=== PATIENT | male | born 1960 | race Caucasian/White ===

== ENCOUNTER 2017-12-23 01:24 | Observation (INO) | END 2017-12-23 14:49 | disposition home or self-care (01) | DX: R07.89 Other chest pain (principal); I25.10 Atherosclerotic heart disease of native coronary artery without angina pectoris; I10 Essential (primary) hypertension; F17.200 Nicotine dependence, unspecified, uncomplicated; E78.5 Hyperlipidemia, unspecified; R06.02 Shortness of breath; I25.2 Old myocardial infarction; E78.00 Pure hypercholesterolemia, unspecified; Z95.5 Presence of coronary angioplasty implant and graft | CPT/HCPCS: 71045; 78452; 80053; 80061; 82550; 84484; 85025; 85610; 85730; 93005; 93017; 99285; A9502; G0378; J2785 ==

== ENCOUNTER 2018-06-18 12:20 | Observation (INO) ==
--- NOTE | 2018-06-18 13:24 | XR ---
EXAM DATE: 06/18/2018 1:20 PM EST AGE/SEX: 57 years / Male INDICATIONS: . Chest pain for 13 hours with history of cardiac disease. CLINICAL DATA: This is the patient's initial encounter. Patient reports that signs and symptoms have been present for 2 days and indicates a pain score of 6/10. MEDICAL/SURGICAL HISTORY: Cardiovascular disease. . 5 cardiac stents COMPARISON: [facility] [place], 12/23/2017. . FINDINGS: PA and lateral views of the chest demonstrate the lungs to be symmetrically aerated without evidence of mass, infiltrate or effusion. The cardiomediastinal contours are unremarkable. Osseous structures are intact. CONCLUSION: Negative examination. Electronically signed by: Tyrone Reed MD 06/18/2018 1:22 PM EST
[2018-06-18 13:32] LABS: Baso # (Auto) 0.1 th/mm3 (0.0-0.2); Baso % (Auto) 0.8 % (0.0-2.0); Eos # (Auto) 0.2 th/mm3 (0.0-0.4); Eos % (Auto) 2.5 % (0.0-4.0); Hemoglobin 14.6 gm/dL (13.0-17.0); Lymph # (Auto) 2.3 th/mm3 (1.0-4.8); Lymph % (Auto) 28.9 % (9.0-44.0); Mean Corpuscular HGB Conc 35.5 % (32.0-36.0); Mean Platelet Volume 8.4 fL (7.0-11.0); Mono # (Auto) 0.5 th/mm3 (0.0-0.9); Mono % (Auto) 6.3 % (0.0-8.0); Neut # (Auto) 4.9 th/mm3 (1.8-7.7); Neut % (Auto) 61.5 % (16.0-70.0); Platelet Count 218 th/mm3 (150-450); Red Blood Count 4.41 mil/mm3 (4.50-5.90)
[2018-06-18 13:48] LABS: Albumin 3.5 g/dL (3.4-5.0); Anion Gap 9 meq/L (5-15); Aspartate Aminotransferase 14 U/L (15-37); Blood Urea Nitrogen 13 mg/dL (7-18); Calcium 8.1 mg/dL (8.5-10.1); Carbon Dioxide 22.9 meq/L (21.0-32.0); Chloride 110 meq/L (98-107); Glomerular Filtration Rate 76 mL/min (>89); Glucose,Random 115 mg/dL (74-106); Potassium 4.1 meq/L (3.5-5.1); Sodium 142 meq/L (136-145)
[2018-06-18 13:49] LABS: Alanine Aminotransferase 27 U/L (12-78)
[2018-06-18 13:53] LABS: Alkaline Phosphatase 82 U/L (45-117); Total Protein 6.7 g/dL (6.4-8.2)
--- NOTE | 2018-06-18 14:45 | ED ---
HPI General Chief Complaint: Chest Pain Stated Complaint: chest pain Time Seen by Provider: 06/18/18 12:42 Source: patient Mode of arrival: ambulatory Limitations: no limitations History of Present Illness HPI narrative: Patient is a 57-year-old male, past medical history significant for artery disease with previous stents, last stent placed approximately 5 years ago, who presents with complaint of intermittent chest pain that began approximately midnight and woke him up from sleep. It is substernal/on the right side of his chest and goes to his right shoulder. He has had 3 previous myocardial infarctions and states that this pain is similar. He is not sure if it is associated with exertion or not. No dyspnea. He has had nausea but no vomiting. No leg swelling or immobilization. He last saw his director sales support approximately 1 year ago when he was living in [place]. complaint: Reports chest pain STEMI Alert: No Onset (ago): hour(s) Duration: intermittent Onset: during rest Pain location: Reports substernal and right chest Severity: moderate Quality: Reports tightness, aching and dull Pain radiation: Reports RUE Relieving factors: nothing Exacerbating factors: nothing Associated symptoms: Reports nausea Treatments prior to arrival chest pain: Reports aspirin Related Data Home Medications Medication Instructions Recorded Confirmed aspirin [Aspirin Low Dose] 81 mg PO DAILY 06/18/18 06/18/18 clopidogrel [Plavix] 75 mg PO DAILY 06/18/18 06/18/18 Allergies Allergy/AdvReac Type Severity Reaction Status Date / Time No Known Allergies Allergy Verified 06/18/18 12:30 Review of Systems ROS: all other systems reviewed are negative FOR[facility] Medical History Medical History High cholesterol (Acute) Myocardial infarct, old (Acute) Surgical History Surgical History History of heart artery stent (Acute) Social History Social History Substance History: No History of Abuse Smoking Status: Former smoker Tobacco Type: Cigarettes How Often Do You Have a Drink Containing Alcohol: 2 to 4 times a month Recent Travel in [facility] within the Last 8 Weeks: No Recent Out of Country Travel within the Last 8 Weeks: No Immunization History Tetanus Immunization: Unsure Exam Narrative Exam Narrative: GENERAL: Well-appearing male in no acute distress SKIN: Focused skin assessment warm/dry. No rashes. HEAD: Atraumatic. Normocephalic. EYES: Pupils equal and round. No scleral icterus. No injection or drainage. ENT: No nasal bleeding or discharge. Mucous membranes pink and moist. NECK: Trachea midline. No JVD. CARDIOVASCULAR: Regular rate and rhythm. No murmur appreciated. Intact and equal peripheral pulses. Normal cap refill. RESPIRATORY: No accessory muscle use. Clear to auscultation. Breath sounds equal bilaterally. GASTROINTESTINAL: Abdomen soft, non-tender, nondistended. Hepatic and splenic margins not palpable. MUSCULOSKELETAL: No obvious deformities. No clubbing. No cyanosis. No edema. NEUROLOGICAL: Awake and alert. No obvious cranial nerve deficits. Motor grossly within normal limits. Normal speech. PSYCHIATRIC: Appropriate mood and affect; insight and judgment normal. Course Initial Documented Vital Signs Temperature 98.1 F 06/18/18 12:28 Pulse Rate 71 06/18/18 12:28 Blood Pressure 137/67 06/18/18 12:28 Pulse Oximetry 99 06/18/18 12:28 Last Documented Vital Signs Temperature 98.1 F 06/18/18 12:28 Pulse Rate 54 L 06/18/18 13:58 Respiratory Rate 18 06/18/18 13:58 Blood Pressure 112/60 06/18/18 13:58 Pulse Oximetry 98 06/18/18 13:58 Medical Decision Making MDM Narrative Medical decision making narrative: Patient is a 57-year-old male with history of coronary disease he has presents with intermittent chest pain. His most recent stents were placed 5 years ago and he has taken both aspirin and Plavix today. EKG shows T wave inversions in V1 and V2 just. Initial troponin was unremarkable and pain was relieved after 1 dose of nitro. He has been admitted to the chest pain center for serial troponins and EKGs. Medical Screen Exam Complete: Yes Emergency Medical Condition: Yes Differential Diagnosis Differential Diagnosis: Differential diagnosis includes but is not limited to acute coronary syndrome, pneumonia, pneumothorax. Medical Records Medical records reviewed: Yes I reviewed the patient's medical records. Lab Data Lab results reviewed: Yes I reviewed the patient's lab results. Result diagrams: 06/18/18 12:45 06/18/18 12:45 Lab Results 11/11/18 11/11/18 11/11/18 Range/Units 12:45 12:45 12:45 WBC 8.0 (4.0-11.0) th/mm3 RBC 4.41 L (4.50-5.90) mil/mm3 Hgb 14.6 (13.0-17.0) gm/dL Hct 41.0 (39.0-51.0) % MCV 93.0 (80.0-100.0) fL MCH 33.0 (27.0-34.0) pg MCHC 35.5 (32.0-36.0) % RDW 13.0 (11.6-17.2) % Plt Count 218 (150-450) th/mm3 MPV 8.4 (7.0-11.0) fL Neut % (Auto) 61.5 (16.0-70.0) % Lymph % (Auto) 28.9 (9.0-44.0) % [place] % (Auto) 6.3 (0.0-8.0) % Eos % (Auto) 2.5 (0.0-4.0) % Baso % (Auto) 0.8 (0.0-2.0) % Neut # (Auto) 4.9 (1.8-7.7) th/mm3 Lymph # (Auto) 2.3 (1.0-4.8) th/mm3 [place] # (Auto) 0.5 (0.0-0.9) th/mm3 Eos # (Auto) 0.2 (0.0-0.4) th/mm3 Baso # (Auto) 0.1 (0.0-0.2) th/mm3 WBC Differential . Differential Comment Auto diff final Sodium 142 (136-145) meq/L Potassium 4.1 (3.5-5.1) meq/L Chloride 110 H (98-107) meq/L Carbon Dioxide 22.9 (21.0-32.0) meq/L Anion Gap 9 (5-15) meq/L BUN 13 (7-18) mg/dL Creatinine 1.01 (0.60-1.30) mg/dL Estimated GFR 76 L (>89) mL/min Random Glucose 115 H (74-106) mg/dL Calcium 8.1 L (8.5-10.1) mg/dL Total Bilirubin 0.3 (0.2-1.0) mg/dL AST 14 L (15-37) U/L ALT 27 (12-78) U/L Alkaline Phosphatase 82 (45-117) U/L Troponin I Less than 0.02 L (0.02-0.05) ng/mL B-Natriuretic Peptide 34 (0-100) pg/mL Total Protein 6.7 (6.4-8.2) g/dL Albumin 3.5 (3.4-5.0) g/dL Imaging Data Attestation: I personally reviewed and interpreted this imaging study as follows : My impression: No acute cardiopulmonary process. Radiologist's impression: Chest X-Ray 06/18/18 12:54 CONCLUSION: Negative examination. ECG Data EKG Prior to Arrival: No Attestation: I personally reviewed and interpreted this ECG as follows: (Sinus rhythm at a rate of 67 bpm. There is T wave inversions in V1 and V2 but no other ST or T wave changes.) Discharge Plan Discharge Disposition Patient Disposition: 30 Still Patient Discharge Condition Condition: Stable Discharge Details Diagnosis: Chest pain, rule out acute myocardial infarction Physicians Team ED Provider: Paulina Wells Primary Care Provider: Primary Care Christine Kenney Attending Provider: Jude Brennan Discharge Interventions Interventions: Vital Signs Last Done: 06/18/18 12:29 Status ED Status: Admitted Observation Patient
[2018-06-18] MEDS ORDERED: ALPRAZolam 0.25 MG Tablet PO PRN (14:53)
[2018-06-18] MEDS ORDERED: Acetaminophen 500 MG Tablet PO PRN (14:54)
--- NOTE | 2018-06-18 15:04 | P.HPCA ---
History of Present Illness Primary Care Physician: No Primary Care Physician Chief Complaint: Chest pain History of Present Illness: This is a 57-year-old male with history of CAD with reported 5 stents. States he developed into the RCA. Presents to ED with complaint of developing a right center tightness in his chest around midnight last evening. Worse level is a 5 out of 10. Is still present at this time but has improved at about a 2 out of 10. Denies nausea, shortness of breath, or diaphoresis. He states he has had 5 stents in the past and that each episode brought him different symptoms. He cannot recall today's symptoms being similar to when needing any of the stents. States he has had 3 MIs. States he has had a stress test at this facility recently. Upon reviewing records he had a nonischemic Lexiscan December 2017. He has not followed up with PCP or crown and bridge technician since. States he has no PCP or insurance. States he has been compliant with Plavix but has not taken amlodipine or atorvastatin since the refill that was given to him in the chest pain center in December. Upon reviewing those records, prior records from his crown and bridge technician in [place] were obtained. States CAD with history of RCA PCI's in the past and inferior AR with last AR 08/2015. Was found to have totally occluded RCA. Attempt was made to open it up which was unsuccessful. He had mild mid LAD and moderately severe distal LAD disease and no significant disease in the circumflex. Patient continues smoke cigarettes at about 1 pack a day and has done so for 40 years. Has occasional alcohol. Smokes marijuana daily. His father and 3 of his siblings have CAD. - Diagnosis (1) Chest pain (2) CAD (coronary artery disease) (3) History of heart artery stent (4) Hypertension (5) Hyperlipidemia (6) Tobacco abuse Review of Systems General: Patient denies fevers, chills, and recent travel. HEENT: Patient denies headache, sore throat, difficulty swallowing. Cardiovascular: Has the chest discomfort as mentioned above. Denies sensation of heart beating rapidly or irregularly. No syncope. Respiratory: Denies shortness of breath or inspirational chest discomfort. Denies coughing wheezing or hemoptysis. GI: Patient denies nausea, vomiting, diarrhea, abdominal pain, bloody stools. Musculoskeletal: Patient denies joint pain or edema. Denies calf pain or edema. Neurovascular: Patient denies numbness, tingling, weakness in extremities. Denies headache. Endocrine: Denies polyuria and polydipsia. Hematologic: Denies easy bruising. Skin: Denies rash or itching. PMFSH - History History Provided By: Patient - Medical History Medical History: Medical History (Last Reviewed 06/18/18 @ 14:50 by Paulina Wells MD) High cholesterol Myocardial infarct, old - Surgical History Surgical History: Surgical History (Last Reviewed 06/18/18 @ 14:50 by Paulina Wells MD) History of heart artery stent - Tobacco History Smoking Status: Former smoker Tobacco Type: Cigarettes - Alcohol History How Often Do You Have a Drink Containing Alcohol: 2 to 4 times a month - Substance Use History Substance History: No History of Abuse - Travel History Recent Travel in the [place] Within the Last 8 Weeks: No Recent Travel Out of the Country Within the Last 8 Weeks: No - Immunization History Tetanus Immunization: Unsure Medications and Allergies Active Medications: Active Medications Acetaminophen (Tylenol) 500 mg PO Q6H PRN PRN Reason: pain scale 1-5 Hydrocodone Bitart/Acetaminophen ([place] 7.5/325) 1 tab PO Q6H PRN PRN Reason: pain scale 6-10 Albuterol (Duoneb Neb (Prn)) 1 ampul NEB Q4HR NEB PRN PRN Reason: SHORTNESS OF BREATH/WHEEZING Alprazolam (Xanax) 0.25 mg PO Q8H PRN PRN Reason: ANXIETY Aspirin (Aspirin) 325 mg PO DAILY ONDINA Clonidine HCl (Catapres) 0.1 mg PO Q6H PRN PRN Reason: SBP >165 OR DBP > 110 Clopidogrel Bisulfate (Plavix) 75 mg PO DAILY ONDINA Ondansetron HCl (Zofran Inj) 4 mg IV.PUSH Q6H PRN PRN Reason: NAUSEA Pantoprazole Sodium (Protonix) 40 mg PO DAILY ONDINA Sodium Chloride (Ns Flush) 2 ml IV.FLUSH UNSCH PRN PRN Reason: FLUSH AFTER USING IV ACCESS Sodium Chloride (Ns Flush) 2 ml IV.FLUSH BID ONDINA Sodium Chloride (Ns Flush) 2 ml IV.FLUSH PRN PRN PRN Reason: FLUSH AFTER USING IV ACCESS Allergies Allergy/AdvReac Type Severity Reaction Status Date / Time No Known Allergies Allergy Verified 06/18/18 12:30 Home Medications Medication Instructions Recorded Confirmed Type aspirin [Aspirin Low Dose] 81 mg PO DAILY 06/18/18 06/18/18 History clopidogrel [Plavix] 75 mg PO DAILY 06/18/18 06/18/18 History Exam Vital signs: Vital Signs 06/18/18 12:28 06/18/18 12:29 06/18/18 12:54 Temperature 98.1 F Pulse Rate 71 78 78 Respiratory Rate 17 17 Blood Pressure 137/67 128/76 128/76 Pulse Oximetry 99 98 98 06/18/18 13:58 Temperature Pulse Rate 54 L Respiratory Rate 18 Blood Pressure 112/60 Pulse Oximetry 98 Intake & Output 06/17/18 06/18/18 06/18/18 18:59 06:59 18:59 Weight 87.543 kg Narrative: GENERAL: This is a well-nourished, well-developed patient, in no apparent distress. Patient speaks in clear complete sentences. Patient is pleasant. HEENT: Head is atraumatic and normocephalic. Neck is supple without lymphadenopathy and trachea is midline. No JVD or carotid bruits. CARDIOVASCULAR: Regular rate and rhythm without murmurs, gallops, or rubs. RESPIRATORY: Clear to auscultation. Breath sounds equal bilaterally. No wheezes , rales, or rhonchi. Chest wall is nontender. No use of accessory muscles. GASTROINTESTINAL: Abdomen is nontender, nondistended. Abdomen soft. No obvious pulsatile mass or bruit. No CVA tenderness. Strong femoral pulses bilaterally. Normal bowel sounds in all quadrants. MUSCULOSKELETAL: Patient is moving upper and lower extremities freely. No calf tenderness or edema, no Homans sign. Strong pulses in upper and lower extremities. NEUROLOGICAL: Patient is alert and oriented. Cranial nerves 2-12 are grossly intact. No focal deficits and speech is clear. SKIN: No rash and turgor is normal. Results 06/18/18 12:45 06/18/18 12:45 Cardiac Enzymes 06/18/18 06/18/18 Range/Units 12:45 12:45 AST 14 L (15-37) U/L Troponin I Less than 0.02 L (0.02-0.05) ng/mL B-Natriuretic Peptide 34 (0-100) pg/mL Coagulation 06/18/18 Range/Units 12:45 B-Natriuretic Peptide 34 (0-100) pg/mL CBC 06/18/18 Range/Units 12:45 WBC 8.0 (4.0-11.0) th/mm3 RBC 4.41 L (4.50-5.90) mil/mm3 Hgb 14.6 (13.0-17.0) gm/dL Hct 41.0 (39.0-51.0) % Plt Count 218 (150-450) th/mm3 Neut # (Auto) 4.9 (1.8-7.7) th/mm3 Lymph # (Auto) 2.3 (1.0-4.8) th/mm3 [place] # (Auto) 0.5 (0.0-0.9) th/mm3 Eos # (Auto) 0.2 (0.0-0.4) th/mm3 Baso # (Auto) 0.1 (0.0-0.2) th/mm3 Comprehensive Metabolic Panel 06/18/18 Range/Units 12:45 Sodium 142 (136-145) meq/L Potassium 4.1 (3.5-5.1) meq/L Chloride 110 H (98-107) meq/L Carbon Dioxide 22.9 (21.0-32.0) meq/L BUN 13 (7-18) mg/dL Creatinine 1.01 (0.60-1.30) mg/dL Calcium 8.1 L (8.5-10.1) mg/dL AST 14 L (15-37) U/L ALT 27 (12-78) U/L Alkaline Phosphatase 82 (45-117) U/L Total Protein 6.7 (6.4-8.2) g/dL Albumin 3.5 (3.4-5.0) g/dL Intake and Output 06/17/18 06/18/18 06/18/18 22:59 06:59 14:59 Other: Weight 87.543 kg Patient Weight 06/19/18 06:59 Weight 87.543 kg - Imaging and Cardiology Imaging: Impressions Chest X-Ray 06/18/18 12:54 CONCLUSION: Negative examination. EKG interpretations - EKG EKG shows: sinus rhythm (Initial EKG is sinus rhythm without significant ST segment depressions or elevations.) Caprini VTE Risk Assessment Caprini VTE Risk Assessment: No/Low Risk (score <= 1) Caprini Risk Assessment Model: Point Value = 1 Point Value = 2 Point Value = 3 Point Value = 5 Age 41-60 Minor surgery BMI > 25 kg/m2 Swollen legs Varicose veins or History of unexplained or recurrent spontaneous Oral contraceptives or hormone replacement Sepsis (< 1 month) Serious lung disease, including pneumonia (< 1 month) Abnormal pulmonary function Acute myocardial infarction Congestive heart failure (< 1 month) History of inflammatory bowel disease Medical patient at bed rest Age 61-74 Arthroscopic surgery Major open surgery (> 45 min) Laparoscopic surgery (> 45 min) Malignancy Confined to bed (> 72 hours) Immobilizing plaster cast Central venous access Age >= 75 History of VTE Family history of VTE Factor V Leiden Prothrombin [id number] Lupus anticoagulant Anticardiolipin antibodies Elevated serum homocysteine Heparin-induced thrombocytopenia Other congenital or acquired thrombophilia Stroke (< 1 month) Elective arthroplasty Hip, pelvis, or leg fracture Acute spinal cord injury (< 1 month) Prophylaxis Regimen: Total Risk Factor Score Risk Level Prophylaxis Regimen 0-1 Low Early ambulation 2 Moderate Order ONE of the following: *Sequential Compression Device (SCD) *Heparin 5000 units SQ BID 3-4 Higher Order ONE of the following medications: *Heparin 5000 units SQ TID *Enoxaparin/Lovenox 40 mg SQ daily (WT < 150 kg, CrCl > 30 mL/min) *Enoxaparin/Lovenox 30 mg SQ daily (WT < 150 kg, CrCl > 10-29 mL/min) *Enoxaparin/Lovenox 30 mg SQ BID (WT < 150 kg, CrCl > 30 mL/min) AND/OR *Sequential Compression Device (SCD) 5 or more Highest Order ONE of the following medications: *Heparin 5000 units SQ TID (Preferred with Epidurals) *Enoxaparin/Lovenox 40 mg SQ daily (WT < 150 kg, CrCl > 30 mL/min) *Enoxaparin/Lovenox 30 mg SQ daily (WT < 150 kg, CrCl > 10-29 mL/min) *Enoxaparin/Lovenox 30 mg SQ BID (WT < 150 kg, CrCl > 30 mL/min) AND *Sequential Compression Device (SCD) Assessment and Plan - Assessment (1) Chest pain Code(s): R07.9 - Chest pain, unspecified Status: Acute (2) CAD (coronary artery disease) Code(s): I25.10 - Atherosclerotic heart disease of [place] coronary artery without angina pectoris Status: Acute (3) History of heart artery stent Code(s): Z95.5 - Presence of coronary angioplasty implant and graft Status: Acute (4) Hypertension Code(s): I10 - Essential (primary) hypertension Status: Acute (5) Hyperlipidemia Code(s): E78.5 - Hyperlipidemia, unspecified Status: Acute (6) Tobacco abuse Code(s): Z72.0 - Tobacco use Status: Acute - Plan * Chest pain: Patient will have serial cardiac enzymes and EKGs for ruling out purposes. Further plan pending evaluation by Dr. Rolando Rivera of cardiology in the chest pain center in the morning. He is complicated as he has apparent history of a totally occluded RCA from 2016. He also is noncompliant with medication. States he has not been on statin therapy and has not been taking amlodipine for several months. * CAD: Plan pending Dr. Rolando Rivera evaluation. Restart medication. Will need follow-up with outpatient crown and bridge technician. * Hypertension: Restart amlodipine. * Hyperlipidemia: He will be restarted on statin therapy and will need follow- up laboratory studies with PCP afterwards. * Tobacco abuse: Patient counseled on the importance of smoking cessation. Patient is stable at this time. He is agreeable to this plan.
[2018-06-18 16:47] LABS: Creatine Kinase 115 U/L (39-308)
[2018-06-19 00:21] VITALS: O2SAT 96
[2018-06-19 07:46] VITALS: BP 147/79; PULSE 64; RESP 16; TEMP 97.9
[2018-06-19] MEDS ORDERED: Aspirin 325 MG Tablet PO SCH (09:00)
[2018-06-19] MEDS ORDERED: amLODIPine 5 MG Tablet PO SCH (09:00)
--- NOTE | 2018-06-20 07:23 | ECG ---
Date Performed: 06/18/2018 Time Performed: 18:29:59 PTAGE: 57 years EKG: Sinus rhythm INCOMPLETE RIGHT BUNDLE BRANCH BLOCK POSSIBLE ANTERIOR MYOCARDIAL INFARCTION ABNORMAL ECG Since PREVIOUS TRACING , no significant change noted DOCTOR: Mag Chambers Interpretating Date/Time 06/20/2018 07:21:47
--- NOTE | 2018-06-20 07:24 | ECG ---
Date Performed: 06/18/2018 Time Performed: 16:04:31 PTAGE: 57 years EKG: SINUS BRADYCARDIA INDETERMINATE AXIS POSSIBLE RIGHT VENTRICULAR CONDUCTION DELAY POSSIBLE A NTERIOR MYOCARDIAL INFARCTION ABNORMAL ECG Since PREVIOUS TRACING , no significant change noted PREVIOUS TRACIN12/23/2017 08.54 DOCTOR: Mag Chambers Interpretating Date/Time 06/20/2018 07:22:39
--- NOTE | 2018-06-20 07:25 | ECG ---
Date Performed: 06/18/2018 Time Performed: 12:38:17 PTAGE: 57 years EKG: Sinus rhythm INDETERMINATE AXIS INCOMPLETE RIGHT BUNDLE BRANCH BLOCK POSSIBLE ANTERIOR MYOCARDIAL INFARCTION ABNO RMAL ECG Since PREVIOUS TRACING , no significant change noted DOCTOR: Mag Chambers Interpretating Date/Time 06/20/2018 07:24:48
== END 2018-06-19 10:32 | disposition home or self-care (01) ==
LOC: NEPE 12:20 → NEDA 12:20 → NEPGCP 17:57